=== PATIENT | male | born 1945 | race Caucasian/White ===

== ENCOUNTER 2021-10-11 08:03 | Emergency (ER) | payer BC, MEDICARE ==
[~2021-10-11 08:03] MED LIST: ASPI-247; GABA100C9; LOSA50TA7; SIMV40TA2; TAM04C
[2021-10-11 10:52] LABS: Urine Bacteria FEW /hpf (None Seen); Urine Blood 3+ /uL (Negative); Urine Specific Gravity 1.014 (1.001-1.035); Urine WBC 8 /hpf (0 - 3)
[2021-10-11 12:37] VITALS: BP 129/37
== END 2021-10-11 12:37 | disposition home or self-care (01) ==
LOC: ER 08:03
DX: R33.9 Retention of urine, unspecified (principal)
CPT/HCPCS: 51702; 81001

== ENCOUNTER 2021-10-29 20:30 | Inpatient (IN) | payer MEDICARE ==
[~2021-10-29] VITALS: Ht 177.8 cm; Wt 88.5 kg
[2021-10-29 21:29] LABS: Basophils # (auto) 0 10 ^3/uL (0-0.2); Basophils % (auto) 0.6 % (0.0-2.0); Eosinophils # (auto) 0.1 10 ^3/uL (0-0.8); Eosinophils % (auto) 1.1 % (0.0-7.0); Hematocrit 37.1 % (41.0-53.0); Hemoglobin 12.6 g/dL (13.5-17.5); Lymphocytes # (auto) 0.8 10 ^3/uL (0.4-5.4); Lymphocytes % (auto) 9.1 % (10.0-50.0); Mean Corpuscular Hemoglobin 31.8 pg (28.0-32.0); Mean Corpuscular Hgb Conc. 33.8 g/dL (32.0-36.0); Mean Corpuscular Volume 94.1 fL (80.0-100.0); Monocytes # (auto) 0.9 10 ^3/uL (0-1.3); Monocytes % (auto) 10.4 % (0.0-12.0); Neutrophils # (auto) 6.6 10 ^3/uL (1.6-8.6); Neutrophils % (auto) 78.8 % (37.0-80.0); Red Blood Cells 3.95 10^6/uL (4.5-5.90); Red Cell Distribution Width 16.8 % (11.8-14.3); White Blood Cell 8.4 10^3/uL (4.4-10.8)
[2021-10-29 21:45] LABS: Albumin 2.8 g/dL (3.4-5.0); BUN/Creatinine Ratio 16.2; Calcium 8.6 mg/dL (8.5-10.1)
[2021-10-29 21:48] LABS: Bilirubin, Total 0.4 mg/dL (0.2-1.0); Total Protein 6.4 g/dL (6.4-8.2)
[2021-10-30] MEDS ORDERED: SODIUM CHLORIDE 0.9% 1,000 ML IV ONE (00:30)
[2021-10-30] MEDS ORDERED: ONDANSETRON HCL 4 MG/2 ML VIAL IV PRN (03:00)
[2021-10-30] MEDS ORDERED: DOCUSATE SOD 100 MG CAP PO PRN (03:00)
[2021-10-30] MEDS ORDERED: ALBUMIN 25% 100 ML IV ONE (03:00)
[2021-10-30] MEDS ORDERED: ACETAMINOPHEN 325 MG TAB PO PRN (03:00)
[2021-10-30] MEDS ORDERED: HYDROcodone-ACET 5/325MG TAB PO PRN (03:00)
[2021-10-30] MEDS ORDERED: DEXTROSE (50%) 50ML SYRG IV PRN (03:00)
[2021-10-30] MEDS ORDERED: MORPHINE SULFATE INJ 2 MG/ml SYRG IV PRN (05:00)
[2021-10-30] MEDS ORDERED: NITROGLYCERIN 0.4 MG SL TAB SL PRN (05:00)
[2021-10-30 05:58] LABS: Basophils # (auto) 0 10 ^3/uL (0-0.2); Basophils % (auto) 0.6 % (0.0-2.0); Eosinophils # (auto) 0.1 10 ^3/uL (0-0.8); Eosinophils % (auto) 1.3 % (0.0-7.0); Lymphocytes # (auto) 0.9 10 ^3/uL (0.4-5.4); Lymphocytes % (auto) 15.2 % (10.0-50.0); Mean Corpuscular Hemoglobin 31.5 pg (28.0-32.0); Mean Corpuscular Hgb Conc. 33.4 g/dL (32.0-36.0); Mean Corpuscular Volume 94.3 fL (80.0-100.0); Monocytes # (auto) 0.6 10 ^3/uL (0-1.3); Monocytes % (auto) 10.6 % (0.0-12.0); Neutrophils # (auto) 4.3 10 ^3/uL (1.6-8.6); Neutrophils % (auto) 72.3 % (37.0-80.0); Red Cell Distribution Width 16.3 % (11.8-14.3)
[2021-10-30 06:16] LABS: Calcium 8.1 mg/dL (8.5-10.1); Chloride 105 mmol/L (98-107); Sodium 139 mmol/L (136-145)
[2021-10-30 06:19] LABS: Alanine Aminotransferase 27 U/L (16-61); Albumin 2.5 g/dL (3.4-5.0); Anion Gap 10 (5-15); Aspartate Aminotransferase 16 U/L (15-37); BUN/Creatinine Ratio 17.3; Blood Urea Nitrogen 35 mg/dL (7-18); Carbon Dioxide 24 mmol/L (21-32); GFR African American 42 mL/min; GFR Non-African American 34 mL/min; Glucose 146 mg/dL (74-106)
[2021-10-30 06:22] LABS: Alkaline Phosphatase 61 U/L (45-117); Bilirubin, Total 0.7 mg/dL (0.2-1.0); Total Protein 5.6 g/dL (6.4-8.2)
[2021-10-30] MEDS: SODIUM CHLOR 0.9% PF (SALINE LOCK) 10ML VIAL/SYR IV SCH ×3 (06:23→22:55)
[2021-10-30] MEDS: ACCU-CHEK COMFORT CURVE STRIP VI SCH ×4 (06:54→22:55)
[2021-10-30] MEDS: InsuLIN REG 1unit/0.01ml Soln (100units/ml) SC SCH ×4 (07:07→22:55)
[2021-10-30 09:12] LABS: Phosphorus 3.3 mg/dL (2.5-4.90)
[2021-10-30] MEDS: FAMOTIDINE (10MG/ML) 2ML VL IV SCH (10:10)
[2021-10-30] MEDS: ASPirin 81 mg TAB PO SCH (10:10)
[2021-10-30 13:05] LABS: Urine Bacteria FEW /hpf (None Seen); Urine Blood 1+ /uL (Negative); Urine Mucus FEW (None Seen); Urine Specific Gravity 1.017 (1.001-1.035); Urine WBC 17 /hpf (0 - 3)
[2021-10-30 13:29] LABS: Amphetamine Screen, Urine NEGATIVE (NEGATIVE); Barbiturate Scree,Urine NEGATIVE (NEGATIVE); Benzodiazephine Screen, Urine NEGATIVE (NEGATIVE); Cannabinoid Screen, Urine NEGATIVE (NEGATIVE); Cocaine Screen, Urine NEGATIVE (NEGATIVE); Opiate Scree,Urine NEGATIVE (NEGATIVE); Phencyclidine Screen, Urine NEGATIVE (NEGATIVE)
[2021-10-30] MEDS ORDERED: POTA1TAB4 PO (20:32)
[2021-10-30] MEDS ORDERED: METF-869 PO (20:32)
[2021-10-30] MEDS ORDERED: LINA145C PO (20:32)
[2021-10-30] MEDS ORDERED: DULO1CAP6 PO (20:32)
[2021-10-30] MEDS ORDERED: ATOR40TA52 PO (20:32)
[2021-10-30] MEDS ORDERED: METO25TA93 PO (20:32)
[2021-10-30] MEDS ORDERED: OMEP-260 PO (20:32)
[2021-10-30 22:00] VITALS: BP 127/85
[2021-10-30] MEDS ORDERED: LORazepam 2MG/ML-1ML VIAL IV PRN (23:00)
[2021-10-31 05:00] VITALS: BP 116/70
[2021-10-31 06:08] LABS: Basophils # (auto) 0 10 ^3/uL (0-0.2); Basophils % (auto) 0.8 % (0.0-2.0); Eosinophils # (auto) 0.1 10 ^3/uL (0-0.8); Hematocrit 33.5 % (41.0-53.0); Hemoglobin 11.1 g/dL (13.5-17.5); Lymphocytes # (auto) 0.9 10 ^3/uL (0.4-5.4); Lymphocytes % (auto) 16.8 % (10.0-50.0); Mean Corpuscular Hgb Conc. 33.1 g/dL (32.0-36.0); Mean Corpuscular Volume 93.8 fL (80.0-100.0); Monocytes # (auto) 0.6 10 ^3/uL (0-1.3); Monocytes % (auto) 10.7 % (0.0-12.0); Neutrophils # (auto) 3.9 10 ^3/uL (1.6-8.6); Neutrophils % (auto) 69.7 % (37.0-80.0); Red Blood Cells 3.58 10^6/uL (4.5-5.90); Red Cell Distribution Width 16.1 % (11.8-14.3); White Blood Cell 5.5 10^3/uL (4.4-10.8)
[2021-10-31 06:25] LABS: Potassium 4.1 mmol/L (3.5-5.1)
[2021-10-31] MEDS: SODIUM CHLOR 0.9% PF (SALINE LOCK) 10ML VIAL/SYR IV SCH ×3 (06:31→22:00)
[2021-10-31] MEDS: ACCU-CHEK COMFORT CURVE STRIP VI SCH ×4 (06:31→22:00)
[2021-10-31 06:32] LABS: Albumin 2.8 g/dL (3.4-5.0); BUN/Creatinine Ratio 17.2; Calcium 8.9 mg/dL (8.5-10.1)
[2021-10-31] MEDS: InsuLIN REG 1unit/0.01ml Soln (100units/ml) SC SCH ×4 (06:32→22:00)
[2021-10-31 06:34] LABS: Bilirubin, Total 0.7 mg/dL (0.2-1.0); Total Protein 5.8 g/dL (6.4-8.2)
[2021-10-31 09:00] VITALS: BP 122/83
[2021-10-31] MEDS: ASPirin 81 mg TAB PO SCH (10:00)
[2021-10-31] MEDS: FAMOTIDINE (10MG/ML) 2ML VL IV SCH (10:00)
[2021-10-31 13:00] VITALS: BP 132/79
[2021-10-31] MEDS ORDERED: cefTRIAXone 1GM/50ML D5W 50 ML IV ONE (13:45)
[2021-10-31 22:00] VITALS: BP 152/89
[2021-11-01] MEDS ORDERED: PREG50CA PO (03:16)
[2021-11-01 05:00] VITALS: BP 99/63
[2021-11-01] MEDS: SODIUM CHLOR 0.9% PF (SALINE LOCK) 10ML VIAL/SYR IV SCH ×3 (06:00→21:48)
[2021-11-01 06:03] LABS: Basophils # (auto) 0.1 10 ^3/uL (0-0.2); Basophils % (auto) 0.8 % (0.0-2.0); Eosinophils # (auto) 0.1 10 ^3/uL (0-0.8); Eosinophils % (auto) 1.3 % (0.0-7.0); Hemoglobin 10.6 g/dL (13.5-17.5); Lymphocytes % (auto) 15.6 % (10.0-50.0); Mean Corpuscular Hemoglobin 32.2 pg (28.0-32.0); Mean Corpuscular Hgb Conc. 34.2 g/dL (32.0-36.0); Mean Corpuscular Volume 94.2 fL (80.0-100.0); Monocytes # (auto) 0.7 10 ^3/uL (0-1.3); Monocytes % (auto) 11.1 % (0.0-12.0); Neutrophils # (auto) 4.7 10 ^3/uL (1.6-8.6); Neutrophils % (auto) 71.2 % (37.0-80.0); White Blood Cell 6.6 10^3/uL (4.4-10.8)
[2021-11-01 06:06] LABS: Calcium 8.7 mg/dL (8.5-10.1); Potassium 4.1 mmol/L (3.5-5.1)
[2021-11-01 06:11] LABS: BUN/Creatinine Ratio 17.2; Magnesium 1.9 mg/dL (1.6-2.6)
[2021-11-01] MEDS: InsuLIN REG 1unit/0.01ml Soln (100units/ml) SC SCH ×4 (06:57→22:13)
[2021-11-01] MEDS: ACCU-CHEK COMFORT CURVE STRIP VI SCH ×4 (06:57→21:48)
[2021-11-01] MEDS ORDERED: MAGNESIUM OXIDE 400 MG TAB PO ONE (08:30)
[2021-11-01 09:00] VITALS: BP 104/73
[2021-11-01] MEDS: FAMOTIDINE (10MG/ML) 2ML VL IV SCH (11:53)
[2021-11-01] MEDS: cefTRIAXone 1GM/50ML D5W 50 ML IV SCH (11:54)
[2021-11-01] MEDS: ASPirin 81 mg TAB PO SCH (11:54)
[2021-11-01 13:00] VITALS: BP 99/69
[2021-11-01 16:00] VITALS: BP_SYST 115; BP_SYST 125; BP_DIAS 64; BP_DIAS 79; BP_DIAS 83
[2021-11-01 17:00] VITALS: BP 120/70
[2021-11-01 22:00] VITALS: BP 121/73
[2021-11-02] VITALS (7 sets, daily range): BP systolic 102–141; BP diastolic 68–93
[2021-11-02] MEDS: SODIUM CHLOR 0.9% PF (SALINE LOCK) 10ML VIAL/SYR IV SCH ×3 (06:05→21:49)
[2021-11-02] MEDS: InsuLIN REG 1unit/0.01ml Soln (100units/ml) SC SCH ×4 (06:47→21:49)
[2021-11-02] MEDS: ACCU-CHEK COMFORT CURVE STRIP VI SCH ×4 (06:47→23:55)
[2021-11-02] MEDS: cefTRIAXone 1GM/50ML D5W 50 ML IV SCH (08:20)
[2021-11-02] MEDS: FAMOTIDINE (10MG/ML) 2ML VL IV SCH (09:00)
[2021-11-02] MEDS: ASPirin 81 mg TAB PO SCH (09:00)
[2021-11-02 20:59] LABS: Basophils # (auto) 0 10 ^3/uL (0-0.2); Basophils % (auto) 0.7 % (0.0-2.0); Eosinophils # (auto) 0.1 10 ^3/uL (0-0.8); Eosinophils % (auto) 1.8 % (0.0-7.0); Hematocrit 34.2 % (41.0-53.0); Hemoglobin 11.1 g/dL (13.5-17.5); Lymphocytes # (auto) 0.8 10 ^3/uL (0.4-5.4); Lymphocytes % (auto) 15.8 % (10.0-50.0); Mean Corpuscular Hemoglobin 30.9 pg (28.0-32.0); Mean Corpuscular Hgb Conc. 32.6 g/dL (32.0-36.0); Mean Corpuscular Volume 94.8 fL (80.0-100.0); Monocytes # (auto) 0.5 10 ^3/uL (0-1.3); Monocytes % (auto) 10.3 % (0.0-12.0); Neutrophils # (auto) 3.7 10 ^3/uL (1.6-8.6); Neutrophils % (auto) 71.4 % (37.0-80.0); Red Cell Distribution Width 16.1 % (11.8-14.3); White Blood Cell 5.2 10^3/uL (4.4-10.8)
[2021-11-02 21:15] LABS: BUN/Creatinine Ratio 14.4; Calcium 9.5 mg/dL (8.5-10.1); Potassium 4.5 mmol/L (3.5-5.1)
[2021-11-03 05:00] VITALS: BP 136/72
[2021-11-03] MEDS: SODIUM CHLOR 0.9% PF (SALINE LOCK) 10ML VIAL/SYR IV SCH ×2 (06:21→09:44)
[2021-11-03] MEDS: InsuLIN REG 1unit/0.01ml Soln (100units/ml) SC SCH ×2 (06:21→11:53)
[2021-11-03] MEDS: ACCU-CHEK COMFORT CURVE STRIP VI SCH ×2 (06:21→11:47)
[2021-11-03 08:30] VITALS: BP 106/63
[2021-11-03] MEDS: cefTRIAXone 1GM/50ML D5W 50 ML IV SCH (08:31)
[2021-11-03 09:00] VITALS: BP 106/63
[2021-11-03] MEDS: FAMOTIDINE (10MG/ML) 2ML VL IV SCH (09:40)
[2021-11-03] MEDS: ASPirin 81 mg TAB PO SCH (09:41)
[2021-11-03 13:00] VITALS: BP 107/75
== END 2021-11-03 14:05 | disposition home or self-care (01) | DRG 74 ==
LOC: ER 20:30 → EDBD 20:30 → TELE 10-30 04:48 → TELE-WESTW 10-30 18:22
PROVIDERS: ADMIT Nurse Practitioner Family; ATTEND Internal Medicine
DX: G90.8 Other disorders of autonomic nervous system (principal); I45.3 Trifascicular block; E44.0 Moderate protein-calorie malnutrition; I13.0 Hypertensive heart and chronic kidney disease with heart failure and stage 1 through stage 4 chronic kidney disease, or unspecified chronic kidney disease; I50.30 Unspecified diastolic (congestive) heart failure; J44.1 Chronic obstructive pulmonary disease with (acute) exacerbation; J96.10 Chronic respiratory failure, unspecified whether with hypoxia or hypercapnia; J98.11 Atelectasis; N13.8 Other obstructive and reflux uropathy; N17.9 Acute kidney failure, unspecified; D64.9 Anemia, unspecified; Z20.822 Contact with and (suspected) exposure to COVID-19; D69.6 Thrombocytopenia, unspecified; E11.22 Type 2 diabetes mellitus with diabetic chronic kidney disease; E66.9 Obesity, unspecified; E78.5 Hyperlipidemia, unspecified; E86.0 Dehydration; F17.200 Nicotine dependence, unspecified, uncomplicated; H91.90 Unspecified hearing loss, unspecified ear; N18.32 Chronic kidney disease, stage 3b; N40.1 Benign prostatic hyperplasia with lower urinary tract symptoms; H54.7 Unspecified visual loss; Z79.84 Long term (current) use of oral hypoglycemic drugs; Z79.82 Long term (current) use of aspirin; Z79.899 Other long term (current) drug therapy; Z83.3 Family history of diabetes mellitus; Z85.118 Personal history of other malignant neoplasm of bronchus and lung; Z85.22 Personal history of malignant neoplasm of nasal cavities, middle ear, and accessory sinuses; Z86.718 Personal history of other venous thrombosis and embolism; Z68.28 Body mass index [BMI] 28.0-28.9, adult
CPT/HCPCS: 36415; 70450; 70551; 71045; 80048; 80053; 80061; 80307; 81001; 82140; 82607; 82746; 82962; 83036; 83735; 83880; 84100; 84154; 84443; 84484; 85025; 87081; 93005; 93306; 93886; 96361; 96365; 97163; G0378; J0696; J1815; J3490; P9047

== ENCOUNTER 2021-11-14 02:40 | Inpatient (IN) | payer MEDICARE ==
[~2021-11-14] VITALS: Ht 177.8 cm; Wt 145.2 kg
[~2021-11-14 02:40] MED LIST changes: +ATOR40TA52 PO; +DULO1CAP6 PO; +LINA145C PO; +METF-869 PO; +METO25TA93 PO; +OMEP-260 PO; +POTA1TAB4 PO; +PREG50CA PO
[2021-11-14] MEDS ORDERED: ONDANSETRON HCL 4 MG/2 ML VIAL IV ONE (03:30)
[2021-11-14] MEDS ORDERED: MORPHINE SULFATE 4 MG/ML SYR/VIAL IV ONE (03:30)
[2021-11-14 03:57] LABS: Basophils # (auto) 0 10 ^3/uL (0-0.2); Basophils % (auto) 0.7 % (0.0-2.0); Eosinophils # (auto) 0.2 10 ^3/uL (0-0.8); Eosinophils % (auto) 2.2 % (0.0-7.0); Hematocrit 28.1 % (41.0-53.0); Hemoglobin 9.6 g/dL (13.5-17.5); Lymphocytes # (auto) 1.3 10 ^3/uL (0.4-5.4); Lymphocytes % (auto) 17.9 % (10.0-50.0); Mean Corpuscular Hemoglobin 31.7 pg (28.0-32.0); Mean Corpuscular Hgb Conc. 34.1 g/dL (32.0-36.0); Monocytes # (auto) 1.1 10 ^3/uL (0-1.3); Monocytes % (auto) 14.8 % (0.0-12.0); Neutrophils # (auto) 4.7 10 ^3/uL (1.6-8.6); Neutrophils % (auto) 64.4 % (37.0-80.0); Nucleated Red Blood Cells % 0.1 %; Red Blood Cells 3.02 10^6/uL (4.5-5.90); Red Cell Distribution Width 16.4 % (11.8-14.3); White Blood Cell 7.3 10^3/uL (4.4-10.8)
[2021-11-14 04:12] LABS: Calcium 7.9 mg/dL (8.5-10.1); Potassium 3.3 mmol/L (3.5-5.1)
[2021-11-14 04:16] LABS: INR 1.06 (0.9-1.15)
[2021-11-14 04:18] LABS: Albumin 2.8 g/dL (3.4-5.0); BUN/Creatinine Ratio 9.4; Bilirubin, Total 0.8 mg/dL (0.2-1.0); Total Protein 6.5 g/dL (6.4-8.2)
[2021-11-14] MEDS ORDERED: cefTRIAXone 1GM/50ML D5W 50 ML IV ONE (06:30)
[2021-11-14 07:34] LABS: Urine Bacteria FEW /hpf (None Seen); Urine Blood 3+ /uL (Negative); Urine Mucus FEW (None Seen); Urine WBC 28 /hpf (0 - 3)
[2021-11-14] MEDS ORDERED: HYDROmorphone HCL 2 MG/ML VL/or syr IV ONE (10:30)
[2021-11-14] MEDS ORDERED: HYDROcodone-ACET 5/325MG TAB PO PRN (11:30)
[2021-11-14] MEDS ORDERED: DOCUSATE SOD 100 MG CAP PO PRN (11:30)
[2021-11-14] MEDS ORDERED: ACETAMINOPHEN 325 MG TAB PO PRN (11:30)
[2021-11-14] MEDS ORDERED: DEXTROSE (50%) 50ML SYRG IV PRN (11:45)
[2021-11-14 11:48] LABS: Urine Bacteria None Seen /hpf (None Seen); Urine WBC None Seen /hpf (0 - 3)
[2021-11-14 12:11] LABS: Creatinine, Urine 50 mg/dL (30.0-125.0); Sodium Urine 60 mmol/L (40-220)
[2021-11-14] MEDS: SODIUM CHLOR 0.9% PF (SALINE LOCK) 10ML VIAL/SYR IV SCH ×2 (14:12→22:41)
[2021-11-14] MEDS: ACCU-CHEK COMFORT CURVE STRIP VI SCH ×2 (17:19→22:40)
[2021-11-14] MEDS: InsuLIN REG 1unit/0.01ml Soln (100units/ml) SC SCH ×2 (17:24→22:40)
[2021-11-14] MEDS: ONDANSETRON HCL 4 MG/2 ML VIAL IV PRN (20:42)
[2021-11-14] MEDS: MORPHINE SULFATE INJ 2 MG/ml SYRG IV PRN (20:43)
[2021-11-14] MEDS ORDERED: METOPROLOL SUCCINATE XL 50 MG TAB PO ONE (22:15)
[2021-11-14] MEDS ORDERED: IBUPROFEN 400 MG TAB PO ONE (22:15)
[2021-11-14] MEDS: ATORVASTATIN 20 MG TAB PO SCH (22:41)
[2021-11-14 23:00] VITALS: BP 109/70
[2021-11-14 23:56] VITALS: BP 113/62
[2021-11-15] MEDS ORDERED: DUTACAP PO (03:49)
[2021-11-15] MEDS ORDERED: BENZ200C64 PO (03:49)
[2021-11-15] MEDS ORDERED: ASPI81CH59 PO (03:50)
[2021-11-15 05:13] VITALS: BP 103/61
[2021-11-15] MEDS: SODIUM CHLOR 0.9% PF (SALINE LOCK) 10ML VIAL/SYR IV SCH ×3 (06:11→21:42)
[2021-11-15] MEDS: InsuLIN REG 1unit/0.01ml Soln (100units/ml) SC SCH ×4 (06:11→21:43)
[2021-11-15] MEDS: ACCU-CHEK COMFORT CURVE STRIP VI SCH ×4 (06:11→21:43)
[2021-11-15 09:00] VITALS: BP 106/66
[2021-11-15 09:57] LABS: Calcium 7.7 mg/dL (8.5-10.1); Potassium 3.9 mmol/L (3.5-5.1)
[2021-11-15] MEDS: TAMSULOSIN HYDROCHLORIDE 0.4 MG CAP PO SCH (10:00)
[2021-11-15] MEDS: GABAPENTIN 100 MG CAP PO SCH (10:00)
[2021-11-15] MEDS: cefTRIAXone 1GM/50ML D5W 50 ML IV SCH (10:51)
[2021-11-15] MEDS: DULoxetine HCL 30 MG CAP PO SCH (10:51)
[2021-11-15] MEDS: POTASSIUM CHL 20 Meq TABLET PO SCH (10:53)
[2021-11-15] MEDS: SENNA 8.6 MG TAB PO SCH (10:54)
[2021-11-15] MEDS: METOPROLOL SUCCINATE XL 50 MG TAB PO SCH (10:54)
[2021-11-15] MEDS: PREGABALIN 25 MG CAP PO SCH (10:54)
[2021-11-15] MEDS ORDERED: guaiFENesin-CODEINE Liq 5 ML UD PO PRN (11:30)
[2021-11-15] MEDS: ALBUTEROL SULF 2.5 MG/0.5ML(0.5%) NEB SOLN NEB SCH ×2 (12:00→19:57)
[2021-11-15] MEDS: IPRATROPIUM BROM 0.5 MG/2.5ML INH SOL NEB SCH ×2 (12:00→19:57)
[2021-11-15 13:00] VITALS: BP 110/67
[2021-11-15] MEDS: SOD CHL 0.45% 1,000 ML IV SCH ×2 (13:13→21:42)
[2021-11-15] MEDS: BENZONATATE PO SCH ×2 (14:00→21:42)
[2021-11-15] MEDS: OMEPRAZOLE 20MG/10ML ORAL SUSP PO SCH (14:41)
[2021-11-15 17:04] VITALS: BP 112/78
[2021-11-15 19:09] VITALS: BP 112/78
[2021-11-15] MEDS: ATORVASTATIN 20 MG TAB PO SCH (21:42)
[2021-11-15 22:00] VITALS: BP 109/69
[2021-11-16] MEDS: MORPHINE SULFATE INJ 2 MG/ml SYRG IV PRN ×3 (00:31→12:18)
[2021-11-16 05:00] VITALS: BP 112/73
[2021-11-16 05:48] LABS: Basophils # (auto) 0 10 ^3/uL (0-0.2); Basophils % (auto) 0.5 % (0.0-2.0); Eosinophils # (auto) 0.2 10 ^3/uL (0-0.8); Monocytes # (auto) 0.9 10 ^3/uL (0-1.3); Neutrophils # (auto) 4.5 10 ^3/uL (1.6-8.6); White Blood Cell 6.7 10^3/uL (4.4-10.8)
[2021-11-16 05:49] LABS: Hematocrit 23.4 % (41.0-53.0); Lymphocytes # (auto) 1.1 10 ^3/uL (0.4-5.4); Lymphocytes % (auto) 16.2 % (10.0-50.0); Mean Corpuscular Hemoglobin 31.6 pg (28.0-32.0); Mean Corpuscular Hgb Conc. 34.2 g/dL (32.0-36.0); Mean Corpuscular Volume 92.5 fL (80.0-100.0); Monocytes % (auto) 13.2 % (0.0-12.0); Neutrophils % (auto) 67.1 % (37.0-80.0); Nucleated Red Blood Cells % 0.1 %; Red Blood Cells 2.53 10^6/uL (4.5-5.90); Red Cell Distribution Width 16.4 % (11.8-14.3)
[2021-11-16 05:53] LABS: Calcium 7.8 mg/dL (8.5-10.1)
[2021-11-16 05:55] LABS: BUN/Creatinine Ratio 13.9
[2021-11-16] MEDS: ALBUTEROL SULF 2.5 MG/0.5ML(0.5%) NEB SOLN NEB SCH ×3 (05:56→19:00)
[2021-11-16] MEDS: IPRATROPIUM BROM 0.5 MG/2.5ML INH SOL NEB SCH ×3 (05:56→19:00)
[2021-11-16] MEDS: BUDESONIDE (INHALATION) 0.5 MG/2 ML NEB NEB SCH ×2 (05:56→18:59)
[2021-11-16] MEDS: SODIUM CHLOR 0.9% PF (SALINE LOCK) 10ML VIAL/SYR IV SCH ×3 (06:00→21:55)
[2021-11-16] MEDS: BENZONATATE PO SCH ×3 (06:00→21:55)
[2021-11-16] MEDS: ACCU-CHEK COMFORT CURVE STRIP VI SCH ×4 (06:01→21:55)
[2021-11-16] MEDS: InsuLIN REG 1unit/0.01ml Soln (100units/ml) SC SCH ×4 (06:01→21:56)
[2021-11-16] MEDS: ONDANSETRON HCL 4 MG/2 ML VIAL IV PRN ×2 (06:01→12:18)
[2021-11-16 08:00] VITALS: BP 111/69
[2021-11-16 09:23] VITALS: BP 111/69
[2021-11-16] MEDS: PREGABALIN 25 MG CAP PO SCH (09:35)
[2021-11-16] MEDS: SENNA 8.6 MG TAB PO SCH (09:35)
[2021-11-16] MEDS: METOPROLOL SUCCINATE XL 50 MG TAB PO SCH (09:36)
[2021-11-16] MEDS: DULoxetine HCL 30 MG CAP PO SCH (09:37)
[2021-11-16] MEDS: POTASSIUM CHL 20 Meq TABLET PO SCH (09:37)
[2021-11-16] MEDS: LINACLOTIDE BASE PO SCH (09:38)
[2021-11-16] MEDS: DUTASTERIDE TAMSULOSIN HCL PO SCH (09:38)
[2021-11-16] MEDS: cefTRIAXone 1GM/50ML D5W 50 ML IV SCH (09:39)
[2021-11-16] MEDS: TAMSULOSIN HYDROCHLORIDE 0.4 MG CAP PO SCH (09:39)
[2021-11-16] MEDS: GABAPENTIN 100 MG CAP PO SCH (09:39)
[2021-11-16] MEDS: SOD CHL 0.45% 1,000 ML IV SCH (10:39)
[2021-11-16] MEDS: OMEPRAZOLE 20MG/10ML ORAL SUSP PO SCH (12:17)
[2021-11-16 13:37] VITALS: BP 117/77
[2021-11-16 17:00] VITALS: BP 104/73
[2021-11-16] MEDS ORDERED: POTA10TA51 PO (19:06)
[2021-11-16] MEDS ORDERED: LOSA25TA38 PO (19:06)
[2021-11-16] MEDS ORDERED: PREG50CA PO (19:06)
[2021-11-16] MEDS ORDERED: FURO40TA4 PO (19:06)
[2021-11-16] MEDS: ATORVASTATIN 20 MG TAB PO SCH (21:55)
[2021-11-16 22:00] VITALS: BP 104/59
[2021-11-17] MEDS: MORPHINE SULFATE INJ 2 MG/ml SYRG IV PRN ×2 (00:59→06:54)
[2021-11-17] MEDS: ONDANSETRON HCL 4 MG/2 ML VIAL IV PRN ×2 (01:02→06:54)
[2021-11-17] MEDS: SOD CHL 0.45% 1,000 ML IV SCH ×2 (01:56→15:35)
[2021-11-17 05:00] VITALS: BP 113/72
[2021-11-17] MEDS: BENZONATATE PO SCH ×3 (06:00→21:39)
[2021-11-17] MEDS: IPRATROPIUM BROM 0.5 MG/2.5ML INH SOL NEB SCH ×3 (06:12→18:53)
[2021-11-17] MEDS: ALBUTEROL SULF 2.5 MG/0.5ML(0.5%) NEB SOLN NEB SCH ×3 (06:12→18:53)
[2021-11-17] MEDS: BUDESONIDE (INHALATION) 0.5 MG/2 ML NEB NEB SCH ×2 (06:12→18:53)
[2021-11-17] MEDS: SODIUM CHLOR 0.9% PF (SALINE LOCK) 10ML VIAL/SYR IV SCH ×3 (06:53→21:39)
[2021-11-17] MEDS: InsuLIN REG 1unit/0.01ml Soln (100units/ml) SC SCH ×4 (06:53→21:41)
[2021-11-17] MEDS: ACCU-CHEK COMFORT CURVE STRIP VI SCH ×4 (06:53→21:40)
[2021-11-17 09:00] VITALS: BP 114/67
[2021-11-17 09:36] LABS: BUN/Creatinine Ratio 11.5; Calcium 7.8 mg/dL (8.5-10.1); Potassium 4.3 mmol/L (3.5-5.1)
[2021-11-17] MEDS: SENNA 8.6 MG TAB PO SCH (10:53)
[2021-11-17] MEDS: DULoxetine HCL 30 MG CAP PO SCH (10:53)
[2021-11-17] MEDS: PREGABALIN 25 MG CAP PO SCH (10:54)
[2021-11-17] MEDS: LINACLOTIDE BASE PO SCH (10:54)
[2021-11-17] MEDS: POTASSIUM CHL 20 Meq TABLET PO SCH (10:54)
[2021-11-17] MEDS: DUTASTERIDE TAMSULOSIN HCL PO SCH (10:54)
[2021-11-17] MEDS: cefTRIAXone 1GM/50ML D5W 50 ML IV SCH (10:55)
[2021-11-17] MEDS: METOPROLOL SUCCINATE XL 50 MG TAB PO SCH (10:57)
[2021-11-17] MEDS: OMEPRAZOLE 20MG/10ML ORAL SUSP PO SCH (11:03)
[2021-11-17 13:00] VITALS: BP 110/65
[2021-11-17 16:52] VITALS: BP 106/67
[2021-11-17] MEDS: ATORVASTATIN 20 MG TAB PO SCH (21:39)
[2021-11-17 22:00] VITALS: BP 113/71
[2021-11-18] MEDS: SOD CHL 0.45% 1,000 ML IV SCH ×2 (03:50→18:15)
[2021-11-18] MEDS: MORPHINE SULFATE INJ 2 MG/ml SYRG IV PRN ×3 (04:48→21:22)
[2021-11-18 05:00] VITALS: BP 106/67
[2021-11-18] MEDS: BENZONATATE PO SCH ×3 (06:00→22:00)
[2021-11-18] MEDS: ALBUTEROL SULF 2.5 MG/0.5ML(0.5%) NEB SOLN NEB SCH ×3 (06:22→19:09)
[2021-11-18] MEDS: BUDESONIDE (INHALATION) 0.5 MG/2 ML NEB NEB SCH ×2 (06:22→19:09)
[2021-11-18] MEDS: IPRATROPIUM BROM 0.5 MG/2.5ML INH SOL NEB SCH ×3 (06:22→19:09)
[2021-11-18 06:25] LABS: Basophils # (auto) 0 10 ^3/uL (0-0.2); Eosinophils # (auto) 0.2 10 ^3/uL (0-0.8); Hemoglobin 7.8 g/dL (13.5-17.5); Lymphocytes # (auto) 0.9 10 ^3/uL (0.4-5.4); Monocytes # (auto) 1.1 10 ^3/uL (0-1.3)
[2021-11-18 06:28] LABS: Basophils % (auto) 0.4 % (0.0-2.0); Eosinophils % (auto) 2.4 % (0.0-7.0); Hematocrit 23.2 % (41.0-53.0); Lymphocytes % (auto) 12.6 % (10.0-50.0); Mean Corpuscular Hemoglobin 31.3 pg (28.0-32.0); Mean Corpuscular Hgb Conc. 33.8 g/dL (32.0-36.0); Mean Corpuscular Volume 92.8 fL (80.0-100.0); Neutrophils # (auto) 5.1 10 ^3/uL (1.6-8.6); Neutrophils % (auto) 69.7 % (37.0-80.0); Red Cell Distribution Width 16.5 % (11.8-14.3); White Blood Cell 7.3 10^3/uL (4.4-10.8)
[2021-11-18 06:42] LABS: Albumin 2.3 g/dL (3.4-5.0); Calcium 8.1 mg/dL (8.5-10.1); Potassium 4.3 mmol/L (3.5-5.1)
[2021-11-18 06:47] LABS: BUN/Creatinine Ratio 11.1; Bilirubin, Total 0.7 mg/dL (0.2-1.0); Total Protein 5.6 g/dL (6.4-8.2)
[2021-11-18] MEDS: SODIUM CHLOR 0.9% PF (SALINE LOCK) 10ML VIAL/SYR IV SCH ×3 (06:47→23:24)
[2021-11-18] MEDS: ACCU-CHEK COMFORT CURVE STRIP VI SCH ×4 (06:47→23:24)
[2021-11-18] MEDS: InsuLIN REG 1unit/0.01ml Soln (100units/ml) SC SCH ×4 (06:47→23:25)
[2021-11-18 07:18] LABS: Monocytes % (auto) 14.9 % (0.0-12.0)
[2021-11-18 09:00] VITALS: BP 108/70
[2021-11-18] MEDS: cefTRIAXone 1GM/50ML D5W 50 ML IV SCH (09:15)
[2021-11-18] MEDS: PREGABALIN 25 MG CAP PO SCH (09:17)
[2021-11-18] MEDS: POTASSIUM CHL 20 Meq TABLET PO SCH (09:17)
[2021-11-18] MEDS: DULoxetine HCL 30 MG CAP PO SCH (09:17)
[2021-11-18] MEDS: SENNA 8.6 MG TAB PO SCH (09:17)
[2021-11-18] MEDS: METOPROLOL SUCCINATE XL 50 MG TAB PO SCH (09:18)
[2021-11-18] MEDS: DUTASTERIDE TAMSULOSIN HCL PO SCH (09:19)
[2021-11-18] MEDS: LINACLOTIDE BASE PO SCH (09:19)
[2021-11-18] MEDS: OMEPRAZOLE 20MG/10ML ORAL SUSP PO SCH (10:15)
[2021-11-18] MEDS ORDERED: LINEZOLID 600MG TABLET PO ONE (12:30)
[2021-11-18 13:00] VITALS: BP 108/79
[2021-11-18] MEDS ORDERED: VANCOMYCIN PER PHARMACY 0 MG IV SCH (15:15)
[2021-11-18 17:14] VITALS: BP 123/76
[2021-11-18 22:00] VITALS: BP 146/87
[2021-11-18] MEDS: LINEZOLID 600MG TABLET PO SCH (22:00)
[2021-11-18] MEDS ORDERED: LINEZOLID 600MG/300ML 300 ML IV SCH (22:00)
[2021-11-18] MEDS: ATORVASTATIN 20 MG TAB PO SCH (23:24)
[2021-11-19] VITALS (7 sets, daily range): BP systolic 114–145; BP diastolic 69–93
[2021-11-19] MEDS: MORPHINE SULFATE INJ 2 MG/ml SYRG IV PRN ×3 (01:36→22:34)
[2021-11-19] MEDS: SODIUM CHLOR 0.9% PF (SALINE LOCK) 10ML VIAL/SYR IV SCH ×3 (05:46→21:44)
[2021-11-19] MEDS: BENZONATATE PO SCH ×4 (06:00→22:00)
[2021-11-19] MEDS: ALBUTEROL SULF 2.5 MG/0.5ML(0.5%) NEB SOLN NEB SCH ×4 (06:10→18:40)
[2021-11-19] MEDS: IPRATROPIUM BROM 0.5 MG/2.5ML INH SOL NEB SCH ×4 (06:10→18:40)
[2021-11-19] MEDS: BUDESONIDE (INHALATION) 0.5 MG/2 ML NEB NEB SCH ×2 (06:11→18:40)
[2021-11-19] MEDS: ACCU-CHEK COMFORT CURVE STRIP VI SCH ×4 (07:00→22:00)
[2021-11-19] MEDS: InsuLIN REG 1unit/0.01ml Soln (100units/ml) SC SCH ×4 (07:00→22:34)
[2021-11-19] MEDS: SOD CHL 0.45% 1,000 ML IV SCH ×2 (07:35→21:43)
[2021-11-19] MEDS ORDERED: fentaNYL CITRATE 100 MCG/2 ML VL ONE (09:28)
[2021-11-19] MEDS ORDERED: MIDAZOLAM HCL 2MG/2ML 2ml VIAL (1mg/ml) ONE (09:28)
[2021-11-19] MEDS ORDERED: PROPOFOL 10 MG/ML 20 ML IV ONE (09:28)
[2021-11-19] MEDS ORDERED: BUPIVACAINE/DEXTROSE MPF 0.75% 2 ML AMP IT ONE (09:28)
[2021-11-19] MEDS ORDERED: SODIUM CHLORIDE LOCK 20 ML ONE (09:28)
[2021-11-19] MEDS: PANTOPRAZOLE 40 MG TAB PO SCH (10:00)
[2021-11-19] MEDS: SENNA 8.6 MG TAB PO SCH (10:00)
[2021-11-19] MEDS: METOPROLOL SUCCINATE XL 50 MG TAB PO SCH (10:00)
[2021-11-19] MEDS: LINEZOLID 600MG TABLET PO SCH ×2 (10:00→21:44)
[2021-11-19] MEDS: DUTASTERIDE TAMSULOSIN HCL PO SCH (10:00)
[2021-11-19] MEDS: LINACLOTIDE BASE PO SCH (10:00)
[2021-11-19] MEDS: DULoxetine HCL 30 MG CAP PO SCH (10:00)
[2021-11-19] MEDS: PREGABALIN 25 MG CAP PO SCH (10:00)
[2021-11-19] MEDS: POTASSIUM CHL 20 Meq TABLET PO SCH (10:00)
[2021-11-19] MEDS ORDERED: LIDOCAINE 2% JELLY 11ml (GLYDO) ONE (10:23)
[2021-11-19] MEDS ORDERED: METOCLOPRAMIDE HCL 5MG/ml INJ 2ml VIAL IV PRN (10:45)
[2021-11-19] MEDS ORDERED: MORPHINE SULFATE 4 MG/ML SYR/VIAL IV PRN (10:45)
[2021-11-19] MEDS ORDERED: HYDROmorphone HCL 2 MG/ML VL/or syr IV PRN ×2 (10:45)
[2021-11-19] MEDS ORDERED: ACCU-CHEK COMFORT CURVE STRIP VI ONE (10:45)
[2021-11-19] MEDS ORDERED: VANCOMYCIN HCL 1000 MG VL ONE (10:53)
[2021-11-19 15:41] LABS: Basophils # (auto) 0 10 ^3/uL (0-0.2); Basophils % (auto) 0.3 % (0.0-2.0); Eosinophils # (auto) 0.1 10 ^3/uL (0-0.8); Hematocrit 28.7 % (41.0-53.0); Hemoglobin 9.2 g/dL (13.5-17.5); Lymphocytes # (auto) 0.4 10 ^3/uL (0.4-5.4); Lymphocytes % (auto) 3.3 % (10.0-50.0); Mean Corpuscular Hgb Conc. 32.2 g/dL (32.0-36.0); Mean Corpuscular Volume 93.3 fL (80.0-100.0); Monocytes # (auto) 0.4 10 ^3/uL (0-1.3); Monocytes % (auto) 3.8 % (0.0-12.0); Neutrophils # (auto) 10.9 10 ^3/uL (1.6-8.6); Neutrophils % (auto) 91.6 % (37.0-80.0); Red Blood Cells 3.08 10^6/uL (4.5-5.90); Red Cell Distribution Width 16.4 % (11.8-14.3); White Blood Cell 11.9 10^3/uL (4.4-10.8)
[2021-11-19 15:58] LABS: Calcium 8.4 mg/dL (8.5-10.1); Potassium 4.9 mmol/L (3.5-5.1)
[2021-11-19] MEDS: ATORVASTATIN 20 MG TAB PO SCH (21:44)
[2021-11-20] MEDS: MORPHINE SULFATE INJ 2 MG/ml SYRG IV PRN ×2 (02:32→22:18)
[2021-11-20 04:53] VITALS: BP 117/72
[2021-11-20] MEDS: SODIUM CHLOR 0.9% PF (SALINE LOCK) 10ML VIAL/SYR IV SCH ×3 (06:00→22:02)
[2021-11-20] MEDS: BENZONATATE PO SCH ×3 (06:00→22:00)
[2021-11-20 06:14] LABS: Eosinophils # (auto) 0 10 ^3/uL (0-0.8); Hemoglobin 7.9 g/dL (13.5-17.5); White Blood Cell 20.6 10^3/uL (4.4-10.8)
[2021-11-20 06:23] LABS: Basophils # (auto) 0 10 ^3/uL (0-0.2); Basophils % (auto) 0.2 % (0.0-2.0); Lymphocytes # (auto) 0.7 10 ^3/uL (0.4-5.4); Lymphocytes % (auto) 3.4 % (10.0-50.0); Mean Corpuscular Hemoglobin 30.6 pg (28.0-32.0); Mean Corpuscular Hgb Conc. 32.7 g/dL (32.0-36.0); Mean Corpuscular Volume 93.4 fL (80.0-100.0); Monocytes # (auto) 1.8 10 ^3/uL (0-1.3); Monocytes % (auto) 8.8 % (0.0-12.0); Neutrophils % (auto) 87.6 % (37.0-80.0); Red Blood Cells 2.57 10^6/uL (4.5-5.90); Red Cell Distribution Width 16.8 % (11.8-14.3)
[2021-11-20] MEDS: BUDESONIDE (INHALATION) 0.5 MG/2 ML NEB NEB SCH ×2 (06:31→19:36)
[2021-11-20] MEDS: ALBUTEROL SULF 2.5 MG/0.5ML(0.5%) NEB SOLN NEB SCH ×3 (06:31→19:36)
[2021-11-20] MEDS: IPRATROPIUM BROM 0.5 MG/2.5ML INH SOL NEB SCH ×3 (06:31→19:36)
[2021-11-20 06:46] LABS: Calcium 8.1 mg/dL (8.5-10.1); Potassium 4.9 mmol/L (3.5-5.1)
[2021-11-20] MEDS: ACCU-CHEK COMFORT CURVE STRIP VI SCH ×4 (06:47→22:02)
[2021-11-20 06:49] LABS: BUN/Creatinine Ratio 11.6
[2021-11-20] MEDS: InsuLIN REG 1unit/0.01ml Soln (100units/ml) SC SCH ×4 (06:49→22:16)
[2021-11-20 09:38] VITALS: BP 116/75
[2021-11-20] MEDS: SOD CHL 0.45% 1,000 ML IV SCH (10:00)
[2021-11-20] MEDS: DUTASTERIDE TAMSULOSIN HCL PO SCH (10:56)
[2021-11-20] MEDS: METOPROLOL SUCCINATE XL 50 MG TAB PO SCH (10:56)
[2021-11-20] MEDS: POTASSIUM CHL 20 Meq TABLET PO SCH (10:56)
[2021-11-20] MEDS: LINACLOTIDE BASE PO SCH (10:56)
[2021-11-20] MEDS: PANTOPRAZOLE 40 MG TAB PO SCH (10:58)
[2021-11-20] MEDS: PREGABALIN 25 MG CAP PO SCH (10:58)
[2021-11-20] MEDS: DULoxetine HCL 30 MG CAP PO SCH (10:58)
[2021-11-20] MEDS: SENNA 8.6 MG TAB PO SCH (10:59)
[2021-11-20] MEDS: LINEZOLID 600MG TABLET PO SCH ×2 (11:38→22:00)
[2021-11-20] MEDS: BELLADONNA ALKAL/OPIUM (16.2/30MG) RECT SUPP PR SCH (11:38)
[2021-11-20 13:00] VITALS: BP 107/73
[2021-11-20 16:49] VITALS: BP 121/68
[2021-11-20 21:54] VITALS: BP 124/78
[2021-11-20] MEDS: ATORVASTATIN 20 MG TAB PO SCH (22:12)
[2021-11-21 04:46] VITALS: BP 99/41
[2021-11-21] MEDS: BENZONATATE PO SCH ×3 (06:00→21:41)
[2021-11-21 06:18] LABS: Eosinophils # (auto) 0.2 10 ^3/uL (0-0.8); White Blood Cell 11.6 10^3/uL (4.4-10.8)
[2021-11-21 06:22] LABS: Basophils # (auto) 0.1 10 ^3/uL (0-0.2); Basophils % (auto) 0.5 % (0.0-2.0); Eosinophils % (auto) 1.5 % (0.0-7.0); Hematocrit 20.9 % (41.0-53.0); Lymphocytes # (auto) 1.1 10 ^3/uL (0.4-5.4); Lymphocytes % (auto) 9.9 % (10.0-50.0); Mean Corpuscular Hemoglobin 30.9 pg (28.0-32.0); Mean Corpuscular Hgb Conc. 33.1 g/dL (32.0-36.0); Mean Corpuscular Volume 93.2 fL (80.0-100.0); Monocytes # (auto) 1.1 10 ^3/uL (0-1.3); Monocytes % (auto) 9.9 % (0.0-12.0); Neutrophils # (auto) 9.1 10 ^3/uL (1.6-8.6); Neutrophils % (auto) 78.2 % (37.0-80.0); Red Blood Cells 2.24 10^6/uL (4.5-5.90); Red Cell Distribution Width 16.9 % (11.8-14.3)
[2021-11-21 06:30] LABS: Hemoglobin 6.9 g/dL (13.5-17.5)
[2021-11-21 06:35] LABS: Calcium 8.6 mg/dL (8.5-10.1); Potassium 4.7 mmol/L (3.5-5.1)
[2021-11-21 06:38] LABS: BUN/Creatinine Ratio 12.4
[2021-11-21] MEDS: SODIUM CHLOR 0.9% PF (SALINE LOCK) 10ML VIAL/SYR IV SCH ×3 (06:39→21:38)
[2021-11-21] MEDS: ACCU-CHEK COMFORT CURVE STRIP VI SCH ×4 (06:47→22:07)
[2021-11-21] MEDS: InsuLIN REG 1unit/0.01ml Soln (100units/ml) SC SCH ×4 (06:47→22:08)
[2021-11-21] MEDS: BUDESONIDE (INHALATION) 0.5 MG/2 ML NEB NEB SCH ×2 (06:51→18:06)
[2021-11-21] MEDS: IPRATROPIUM BROM 0.5 MG/2.5ML INH SOL NEB SCH ×3 (06:51→18:06)
[2021-11-21] MEDS: ALBUTEROL SULF 2.5 MG/0.5ML(0.5%) NEB SOLN NEB SCH ×3 (06:51→18:06)
[2021-11-21 09:10] VITALS: BP 165/64
[2021-11-21] MEDS: LINEZOLID 600MG TABLET PO SCH ×2 (09:38→21:38)
[2021-11-21] MEDS: SENNA 8.6 MG TAB PO SCH (09:39)
[2021-11-21] MEDS: PANTOPRAZOLE 40 MG TAB PO SCH (09:39)
[2021-11-21] MEDS: POTASSIUM CHL 20 Meq TABLET PO SCH (09:39)
[2021-11-21] MEDS: DULoxetine HCL 30 MG CAP PO SCH (09:40)
[2021-11-21] MEDS: LINACLOTIDE BASE PO SCH (09:40)
[2021-11-21] MEDS: DUTASTERIDE TAMSULOSIN HCL PO SCH (09:41)
[2021-11-21] MEDS: METOPROLOL SUCCINATE XL 50 MG TAB PO SCH (09:44)
[2021-11-21] MEDS: PREGABALIN 25 MG CAP PO SCH (09:57)
[2021-11-21] MEDS: BELLADONNA ALKAL/OPIUM (16.2/30MG) RECT SUPP PR SCH (09:57)
[2021-11-21] MEDS: SOD CHL 0.45% 1,000 ML IV SCH (10:00)
[2021-11-21 12:57] VITALS: BP 128/71
[2021-11-21 13:42] LABS: Basophils # (auto) 0.1 10 ^3/uL (0-0.2); Eosinophils # (auto) 0.2 10 ^3/uL (0-0.8); Eosinophils % (auto) 2.4 % (0.0-7.0); Hemoglobin 7.4 g/dL (13.5-17.5); Monocytes # (auto) 0.9 10 ^3/uL (0-1.3); Monocytes % (auto) 9.7 % (0.0-12.0); Neutrophils # (auto) 7.4 10 ^3/uL (1.6-8.6)
[2021-11-21 13:44] LABS: Basophils % (auto) 0.7 % (0.0-2.0); Hematocrit 22.4 % (41.0-53.0); Lymphocytes # (auto) 0.9 10 ^3/uL (0.4-5.4); Lymphocytes % (auto) 9.8 % (10.0-50.0); Mean Corpuscular Hemoglobin 30.7 pg (28.0-32.0); Mean Corpuscular Hgb Conc. 33.1 g/dL (32.0-36.0); Mean Corpuscular Volume 92.7 fL (80.0-100.0); Neutrophils % (auto) 77.4 % (37.0-80.0); Nucleated Red Blood Cells % 0.1 %; Red Blood Cells 2.42 10^6/uL (4.5-5.90); Red Cell Distribution Width 16.7 % (11.8-14.3); White Blood Cell 9.5 10^3/uL (4.4-10.8)
[2021-11-21 17:08] VITALS: BP 118/73
[2021-11-21 18:00] LABS: Hemoglobin 7.7 g/dL (13.5-17.5)
[2021-11-21 18:02] LABS: Hematocrit 23.3 % (41.0-53.0)
[2021-11-21] MEDS: ATORVASTATIN 20 MG TAB PO SCH (21:38)
[2021-11-21 22:00] VITALS: BP 107/72
[2021-11-21] MEDS: MORPHINE SULFATE INJ 2 MG/ml SYRG IV PRN (23:27)
[2021-11-22 05:00] VITALS: BP 143/82
[2021-11-22] MEDS: SODIUM CHLOR 0.9% PF (SALINE LOCK) 10ML VIAL/SYR IV SCH ×2 (05:56→14:00)
[2021-11-22] MEDS: BENZONATATE PO SCH ×2 (05:56→14:57)
[2021-11-22] MEDS: InsuLIN REG 1unit/0.01ml Soln (100units/ml) SC SCH ×3 (05:56→18:14)
[2021-11-22] MEDS: ACCU-CHEK COMFORT CURVE STRIP VI SCH ×3 (05:56→18:14)
[2021-11-22] MEDS: IPRATROPIUM BROM 0.5 MG/2.5ML INH SOL NEB SCH ×3 (06:20→17:55)
[2021-11-22] MEDS: ALBUTEROL SULF 2.5 MG/0.5ML(0.5%) NEB SOLN NEB SCH ×3 (06:20→17:55)
[2021-11-22] MEDS: BUDESONIDE (INHALATION) 0.5 MG/2 ML NEB NEB SCH ×2 (06:21→17:55)
[2021-11-22 09:00] VITALS: BP 104/61
[2021-11-22] MEDS: SOD CHL 0.45% 1,000 ML IV SCH (09:29)
[2021-11-22] MEDS: DUTASTERIDE TAMSULOSIN HCL PO SCH (09:29)
[2021-11-22] MEDS: DULoxetine HCL 30 MG CAP PO SCH (09:30)
[2021-11-22] MEDS: PREGABALIN 25 MG CAP PO SCH (09:30)
[2021-11-22] MEDS: LINACLOTIDE BASE PO SCH (09:30)
[2021-11-22] MEDS: POTASSIUM CHL 20 Meq TABLET PO SCH (09:30)
[2021-11-22] MEDS: SENNA 8.6 MG TAB PO SCH (09:31)
[2021-11-22] MEDS: PANTOPRAZOLE 40 MG TAB PO SCH (09:31)
[2021-11-22] MEDS: LINEZOLID 600MG TABLET PO SCH (09:36)
[2021-11-22] MEDS: METOPROLOL SUCCINATE XL 50 MG TAB PO SCH (09:36)
[2021-11-22 09:52] LABS: Calcium 8.3 mg/dL (8.5-10.1); Potassium 4.8 mmol/L (3.5-5.1)
[2021-11-22 09:55] LABS: BUN/Creatinine Ratio 12.3
[2021-11-22] MEDS: BELLADONNA ALKAL/OPIUM (16.2/30MG) RECT SUPP PR SCH (10:00)
[2021-11-22 11:41] VITALS: BP 126/62
[2021-11-22] MEDS ORDERED: BACDST PO (12:04)
[2021-11-22 12:27] VITALS: BP 111/49
[2021-11-22 17:00] VITALS: BP 135/87
== END 2021-11-22 18:10 | disposition home or self-care (01) | DRG 665 ==
LOC: EDUNIT# 02:40 → ER 02:40 → EDBD 02:40 → OVERFLOW 11:40 → WEST WING 20:55
PROVIDERS: ADMIT Internal Medicine; ATTEND Nurse Practitioner Acute Care
PROC: 0TCB8ZZ Extirpation of Matter from Bladder, Via Natural or Artificial Opening Endoscopic (ICD-10-PCS; 2021-11-19)
PROC: 30233N1 Transfusion of Nonautologous Red Blood Cells into Peripheral Vein, Percutaneous Approach (ICD-10-PCS; 2021-11-19)
PROC: 0V508ZZ Destruction of Prostate, Via Natural or Artificial Opening Endoscopic (ICD-10-PCS; principal; 2021-11-19 11:12)
DX: N17.9 Acute kidney failure, unspecified (principal); J96.21 Acute and chronic respiratory failure with hypoxia; E44.0 Moderate protein-calorie malnutrition; Z68.42 Body mass index [BMI] 45.0-49.9, adult; N13.8 Other obstructive and reflux uropathy; Z20.822 Contact with and (suspected) exposure to COVID-19; N40.1 Benign prostatic hyperplasia with lower urinary tract symptoms; N18.4 Chronic kidney disease, stage 4 (severe); D64.9 Anemia, unspecified; T83.021A Displacement of indwelling urethral catheter, initial encounter; R31.0 Gross hematuria; E11.22 Type 2 diabetes mellitus with diabetic chronic kidney disease; I12.9 Hypertensive chronic kidney disease with stage 1 through stage 4 chronic kidney disease, or unspecified chronic kidney disease; E66.9 Obesity, unspecified; E78.5 Hyperlipidemia, unspecified; J44.9 Chronic obstructive pulmonary disease, unspecified; N30.90 Cystitis, unspecified without hematuria; N32.0 Bladder-neck obstruction; R33.8 Other retention of urine; Z79.899 Other long term (current) drug therapy
CPT/HCPCS: 36415; 51702; 71045; 74176; 80048; 80053; 81001; 81015; 82570; 82728; 82962; 83690; 84154; 84300; 84484; 84550; 85014; 85018; 85025; 85610; 86850; 86900; 86901; 86920; 87081; 87086; 87088; 87186; 93005; 94640; 96365; 96375; 96376; G0378; J0696; J1815; J2250; J2405; J2704

== ENCOUNTER 2021-12-09 18:06 | Emergency (ER) | payer MEDICARE ==
[~2021-12-09] VITALS: Ht 177.8 cm; Wt 81.0 kg
[~2021-12-09 18:06] MED LIST changes: -ASPI-247; +ASPI81CH59 PO; +BACDST PO; -DULO1CAP6 PO; +DUTACAP PO; +FURO40TA4 PO; -GABA100C9; +LOSA25TA38 PO; -LOSA50TA7; +POTA10TA51 PO; -POTA1TAB4 PO; -SIMV40TA2; -TAM04C
[2021-12-09 22:49] LABS: Basophils # (auto) 0.1 10 ^3/uL (0-0.2); Basophils % (auto) 0.9 % (0.0-2.0); Eosinophils # (auto) 0.4 10 ^3/uL (0-0.8); Hematocrit 27.5 % (41.0-53.0); Hemoglobin 9.1 g/dL (13.5-17.5); Lymphocytes # (auto) 1.2 10 ^3/uL (0.4-5.4); Mean Corpuscular Hemoglobin 30.3 pg (28.0-32.0); Mean Corpuscular Hgb Conc. 33.1 g/dL (32.0-36.0); Mean Corpuscular Volume 91.3 fL (80.0-100.0); Monocytes # (auto) 0.8 10 ^3/uL (0-1.3); Monocytes % (auto) 10.4 % (0.0-12.0); Neutrophils # (auto) 4.8 10 ^3/uL (1.6-8.6); Neutrophils % (auto) 66.7 % (37.0-80.0); Nucleated Red Blood Cells % 0.1 %; Red Blood Cells 3.01 10^6/uL (4.5-5.90); White Blood Cell 7.2 10^3/uL (4.4-10.8)
[2021-12-09 23:06] LABS: Albumin 2.9 g/dL (3.4-5.0); Calcium 8.9 mg/dL (8.5-10.1); Potassium 4.9 mmol/L (3.5-5.1)
[2021-12-09 23:09] LABS: Urine Bacteria NONE SEEN /hpf (None Seen); Urine Blood 3+ /uL (Negative); Urine WBC 235 /hpf (0 - 3); Urine WBC Clumps PRESENT /hpf (None Seen)
[2021-12-09 23:11] LABS: Bilirubin, Total 0.5 mg/dL (0.2-1.0); Total Protein 7.2 g/dL (6.4-8.2)
[2021-12-10] MEDS ORDERED: cefTRIAXone 1GM/50ML D5W 50 ML IV ONE
[2021-12-10] MEDS ORDERED: CIPR-173 PO (00:01)
[2021-12-10 01:33] VITALS: BP 153/99
== END 2021-12-10 05:54 | disposition home or self-care (01) ==
LOC: EDBD 18:06 → ER 18:06
DX: N39.0 Urinary tract infection, site not specified (principal); R33.9 Retention of urine, unspecified; E11.22 Type 2 diabetes mellitus with diabetic chronic kidney disease; I12.9 Hypertensive chronic kidney disease with stage 1 through stage 4 chronic kidney disease, or unspecified chronic kidney disease; N18.9 Chronic kidney disease, unspecified; E78.5 Hyperlipidemia, unspecified; Z88.6 Allergy status to analgesic agent
CPT/HCPCS: 36415; 74176; 80053; 81001; 85025; 96365; 99284; J0696

== ENCOUNTER 2023-01-04 18:47 | Inpatient (IN) | payer MEDICARE ==
[~2023-01-04] VITALS: Ht 177.8 cm; Wt 74.0 kg
[~2023-01-04 18:47] MED LIST changes: +CIPR-173 PO; +LOSA25TA15 PO; -LOSA25TA38 PO; -OMEP-260 PO; +OMEP1CAP70 PO
[2023-01-04] MEDS ORDERED: IPRATROPIUM BROM 0.5 MG/2.5ML INH SOL NEB ONE (19:00)
[2023-01-04] MEDS ORDERED: ALBUTEROL SULF 2.5 MG/0.5ML(0.5%) NEB SOLN NEB ONE ×2 (19:00→21:00)
[2023-01-04] MEDS ORDERED: SODIUM CHLORIDE 0.9% 1,000 ML IV ONE (19:00)
[2023-01-04] MEDS ORDERED: ALBUTEROL MEDNEB 2.5 mg/3ml NEB ONE (19:11)
[2023-01-04] MEDS ORDERED: VANCOMYCIN 1GM/250ML 250 ML IV ONE (19:15)
[2023-01-04 19:20] LABS: Base Excess -12.3 mmol/L (-2.0-2.0)
[2023-01-04 19:30] VITALS: PULSE 131; RESP 30; O2SAT 100
[2023-01-04 19:53] LABS: Hematocrit 41.9 % (41.0-53.0); Hemoglobin 13.3 g/dL (13.5-17.5); Mean Corpuscular Hemoglobin 28.8 pg (28.0-32.0); Mean Corpuscular Hgb Conc. 31.9 g/dL (32.0-36.0); Mean Corpuscular Volume 90.4 fL (80.0-100.0); Red Blood Cells 4.63 10^6/uL (4.5-5.90); White Blood Cell 23.7 10^3/uL (4.4-10.8)
[2023-01-04 20:03] LABS: Alanine Aminotransferase 33 U/L (7-40); Albumin 3.9 g/dL (3.2-4.8); Alkaline Phosphatase 122 U/L (46-116); Anion Gap 13 (5-15); Aspartate Aminotransferase 62 U/L (13-40); BUN/Creatinine Ratio 13.8 (10.0-20.0); Bilirubin, Total 0.8 mg/dL (0.2-1.0); Blood Urea Nitrogen 35 mg/dL (9-23); Calcium 9.4 mg/dL (8.7-10.4); Carbon Dioxide 18 mmol/L (20-30); Chloride 107 mmol/L (98-107); Glucose 144 mg/dL (74-106); Sodium 138 mmol/L (136-145); Total Protein 7.3 g/dL (5.7-8.2)
[2023-01-04 20:26] LABS: Basophils % (manual) 0 (0.0-2.0); Blast Cells 0; Eosinophils % (manual) 0 (0-7); Metamyelocytes % 0; Promyelocytes % 0; Reactive Lymphocytes 0
[2023-01-04 20:30] LABS: Lactic Acid w/Reflex 5.5 mmol/L (0.4-2.0)
[2023-01-04 20:31] LABS: Potassium 5.6 mmol/L (3.5-5.1)
[2023-01-04 21:05] LABS: Band Neutrophils % (manual) 44; Lymphocytes % (manual) 5 (10.0-50.0); Monocytes % (manual) 5 (0-12); Myelocytes % 1; Platelet Estimate Adequate
[2023-01-04 22:28] VITALS: BP 117/82; PULSE 126; RESP 31; O2SAT 100
[2023-01-04] MEDS ORDERED: AZITHROMYCIN 500MG/ 250ML 250 ML IV ONE (22:30)
[2023-01-04] MEDS ORDERED: cefTRIAXone 1GM/50ML D5W 50 ML IV ONE (22:30)
[2023-01-04] MEDS ORDERED: ALBUTEROL MEDNEB 2.5 mg/3ml NEB NEB PRN (23:45)
[2023-01-04] MEDS ORDERED: IPRATROPIUM BROM 0.5 MG/2.5ML INH SOL NEB PRN (23:45)
[2023-01-04] MEDS ORDERED: MORPHINE SULFATE INJ 2 MG/ml SYRG IV PRN (23:45)
[2023-01-04] MEDS ORDERED: DEXTROSE (50%) 50ML SYRG IV PRN (23:45)
[2023-01-04] MEDS ORDERED: ONDANSETRON HCL 4 MG/2 ML VIAL IV PRN (23:45)
[2023-01-04] MEDS ORDERED: NITROGLYCERIN 0.4 MG SL TAB SL PRN (23:45)
[2023-01-04] MEDS ORDERED: SODIUM ZIRCONIUM CYCL 10 GM PAK PO ONE (23:45)
[2023-01-05] VITALS (11 sets, daily range): BP systolic 83–180; BP diastolic 43–94; PULSE 93–131; RESP 17–26; TEMP 98.2; O2SAT 91–100
[2023-01-05] MEDS ORDERED: LORazepam 2MG/ML-1ML VIAL IV ONE (01:15)
[2023-01-05] MEDS ORDERED: ACETAMINOPHEN 325 MG TAB PO PRN (02:00)
[2023-01-05 02:12] LABS: Base Excess -12.3 mmol/L (-2.0-2.0)
[2023-01-05] MEDS ORDERED: ETOMIDATE (2MG/ML) 20ML VIAL IV ONE ×2 (02:26→03:30)
[2023-01-05] MEDS ORDERED: SUCCINYLCHOLINE CHLORIDE 20 MG/ML 10ML VIAL IV ONE ×2 (02:27→03:30)
[2023-01-05] MEDS ORDERED: MIDAZOLAM DRIP 50 mg/50mL 50 ML IV ONE (02:55)
[2023-01-05] MEDS: MIDAZOLAM DRIP 50 mg/50mL 50 ML IV SCH ×3 (03:49→13:47)
[2023-01-05 03:56] LABS: Base Excess -12.1 mmol/L (-2.0-2.0)
[2023-01-05] MEDS: NOREPINEPHRINE 8 MG/250ML KIT 250 ML IV SCH ×3 (04:13→11:24)
[2023-01-05] MEDS: SODIUM BICARBONATE 8.4 % INJ 50ML VIAL IV ONE ×2 (05:17→06:15)
[2023-01-05 06:04] LABS: Urine Bacteria MANY /hpf (None Seen); Urine Blood 2+ /uL (Negative); Urine Clarity HAZY (Clear); Urine Color Yellow (Yellow); Urine Hyaline Cast FEW /lpf (0 - 2); Urine Protein, UAD 3+ (Negative); Urine Specific Gravity 1.027 (1.001-1.035); Urine Urobilinogen Normal (Negative); Urine WBC 3 /hpf (0 - 3)
[2023-01-05] MEDS ORDERED: SODIUM BICARBONATE 8.4 % INJ 50ML VIAL IV ONE ×2 (06:21→14:30)
[2023-01-05] MEDS: SODIUM BICARBONATE 50ML VIAL 100 ML in SOD CHL 0.45% 1,000 ML IV SCH ×2 (06:32→09:07)
[2023-01-05 07:03] LABS: Hematocrit 41.4 % (41.0-53.0); Hemoglobin 13.1 g/dL (13.5-17.5); Mean Corpuscular Hemoglobin 28.5 pg (28.0-32.0); Mean Corpuscular Hgb Conc. 31.8 g/dL (32.0-36.0); Mean Corpuscular Volume 89.8 fL (80.0-100.0); Red Blood Cells 4.61 10^6/uL (4.5-5.90)
[2023-01-05 07:20] LABS: Alanine Aminotransferase 55 U/L (7-40); Albumin 3.6 g/dL (3.2-4.8); Alkaline Phosphatase 101 U/L (46-116); Anion Gap 10 (5-15); Aspartate Aminotransferase 109 U/L (13-40); BUN/Creatinine Ratio 11.4 (10.0-20.0); Blood Urea Nitrogen 38 mg/dL (9-23); Carbon Dioxide 18 mmol/L (20-30); Chloride 107 mmol/L (98-107); Glucose 113 mg/dL (74-106); Potassium 4.9 mmol/L (3.5-5.1); Sodium 135 mmol/L (136-145)
[2023-01-05 07:21] LABS: Bilirubin, Total 0.5 mg/dL (0.2-1.0); Total Protein 6.8 g/dL (5.7-8.2)
[2023-01-05 07:41] LABS: Basophils % (manual) 0 (0.0-2.0); Blast Cells 0; Eosinophils % (manual) 0 (0-7); Promyelocytes % 0; Reactive Lymphocytes 0; White Blood Cell 33.7 10^3/uL (4.4-10.8)
[2023-01-05] MEDS: InsuLIN REG 1unit/0.01ml Soln (100units/ml) SC SCH ×3 (07:56→16:57)
[2023-01-05] MEDS: ACCU-CHEK COMFORT CURVE STRIP VI SCH ×3 (07:57→17:01)
[2023-01-05] MEDS ORDERED: fentaNYL Drip 2500mCg/250mlNS 250 ML IV SCH (08:00)
[2023-01-05 08:23] LABS: Base Excess -10.1 mmol/L (-2.0-2.0)
[2023-01-05] MEDS ORDERED: VANCOMYCIN PER PHARMACY 0 MG IV SCH (08:30)
[2023-01-05] MEDS ORDERED: ACETAMINOPHEN 650 mg PER 20.3 mL UD PO PRN (08:30)
[2023-01-05 08:34] LABS: INR 1.24 (0.9-1.15); Partial Thromboplastin Time 36.7 SEC (24.5-34.5); Prothrombin Time 12.8 sec (9.3-11.8)
[2023-01-05] MEDS ORDERED: ACETAMINOPHEN 650 mg PER 20.3 mL UD ONE (08:37)
[2023-01-05] MEDS ORDERED: cefTRIAXone 1GM/50ML D5W 50 ML IV SCH (09:00)
[2023-01-05] MEDS ORDERED: HYDROCORTISONE SOD SUCC 100 MG/2ML INJ VIAL IV SCH (10:00)
[2023-01-05] MEDS ORDERED: LINEZOLID 600MG/300ML 300 ML IV SCH (10:00)
[2023-01-05] MEDS ORDERED: AZITHROMYCIN 500MG/ 250ML 250 ML IV SCH (10:00)
[2023-01-05 10:58] LABS: Creatinine, Urine 104.03 mg/dL (30.0-125.0)
[2023-01-05] MEDS ORDERED: VASOPRESSIN 20 UNITS in SODIUM CHL 0.9% 99 ML IV SCH (11:00)
[2023-01-05 11:02] LABS: Protein, Urine 1479.9 mg/dL (0.0-11.9)
[2023-01-05 11:06] LABS: Urine Bacteria MANY /hpf (None Seen); Urine Blood 3+ /uL (Negative); Urine Clarity HAZY (Clear); Urine Color PINK (Yellow); Urine Protein, UAD 3+ (Negative); Urine Specific Gravity 1.025 (1.001-1.035); Urine Urobilinogen Normal (Negative); Urine WBC 15 /hpf (0 - 3)
[2023-01-05 11:13] LABS: Base Excess -12.9 mmol/L (-2.0-2.0)
[2023-01-05 12:22] LABS: Band Neutrophils % (manual) 8; Lymphocytes % (manual) 3 (10.0-50.0); Metamyelocytes % 18; Monocytes % (manual) 9 (0-12); Myelocytes % 1; Platelet Estimate Adequate
[2023-01-05] MEDS ORDERED: LIDOCAINE 1% (LOCAL ANESTH.) PF 5ml SDV ID ONE (13:15)
[2023-01-05] MEDS ORDERED: ALBUTEROL MEDNEB 2.5 mg/3ml NEB NEB SCH (14:00)
[2023-01-05] MEDS ORDERED: IPRATROPIUM BROM 0.5 MG/2.5ML INH SOL NEB SCH (14:00)
[2023-01-05] MEDS ORDERED: PIPERACILLIN-TAZOB 3.375GM 100 ML IV SCH (14:00)
[2023-01-05] MEDS ORDERED: ACETYLCYSTEINE 10 %(100MG/ML) SOL 4ML NEB SCH (14:00)
[2023-01-05 14:22] LABS: Base Excess -12.6 mmol/L (-2.0-2.0)
[2023-01-05] MEDS ORDERED: CHOL20007 PO (14:49)
[2023-01-05] MEDS ORDERED: NOREPINEPHRINE BITARTRATE 16 MG in SODIUM CHL 0.9% 234 ML IV SCH (15:30)
[2023-01-05 15:56] LABS: Base Excess -9.8 mmol/L (-2.0-2.0)
[2023-01-05] MEDS ORDERED: SODIUM BICARBONATE 50ML VIAL 100 ML in D5W 5% 1,000 ML IV SCH (16:15)
[2023-01-05] MEDS ORDERED: ENOXAPARIN SOD 30 MG/0.3 ML SYRINGE SC SCH (17:00)
[2023-01-05] MEDS ORDERED: ENOXAPARIN SOD 100 MG/1 ML SYRINGE SC SCH (17:15)
[2023-01-05] MEDS ORDERED: DOPamine 1600MCG/ML D5W 250 ML IV SCH (17:30)
[2023-01-05] MEDS ORDERED: EPINEPHrine HCL 1 MG/10 ML SYRG IV ONE ×2 (18:46)
[2023-01-05] MEDS ORDERED: ATROPINE SULF 1 MG/10ml SYR IM ONE (18:46)
[2023-01-05] MEDS ORDERED: SODIUM BICARBONATE 8.4% INJ 50ML SYRINGE IV ONE (18:46)
[2023-01-05] MEDS ORDERED: SODIUM CHLOR 0.9% PF (SALINE LOCK) 10ML VIAL/SYR IV SCH (22:00)
== END 2023-01-05 18:47 | DRG 871 ==
LOC: EDBD 18:47 → ER 18:47 → TELE 23:41
PROVIDERS: ADMIT Nurse Practitioner; ATTEND Nurse Practitioner
PROC: 5A09357 Assistance with Respiratory Ventilation, Less than 24 Consecutive Hours, Continuous Positive Airway Pressure (ICD-10-PCS; 2023-01-04)
PROC: 0BH17EZ Insertion of Endotracheal Airway into Trachea, Via Natural or Artificial Opening (ICD-10-PCS; 2023-01-04)
PROC: 5A12012 Performance of Cardiac Output, Single, Manual (ICD-10-PCS; principal; 2023-01-05)
PROC: 5A1223Z Performance of Cardiac Pacing, Continuous (ICD-10-PCS; 2023-01-05)
PROC: 5A1935Z Respiratory Ventilation, Less than 24 Consecutive Hours (ICD-10-PCS; 2023-01-05)
PROC: 02HV33Z Insertion of Infusion Device into Superior Vena Cava, Percutaneous Approach (ICD-10-PCS; 2023-01-05)
PROC: B548ZZA Ultrasonography of Superior Vena Cava, Guidance (ICD-10-PCS; 2023-01-05)
DX: A41.9 Sepsis, unspecified organism (principal); J15.69 Pneumonia due to other Gram-negative bacteria; J96.01 Acute respiratory failure with hypoxia; N17.0 Acute kidney failure with tubular necrosis; R65.21 Severe sepsis with septic shock; J15.9 Unspecified bacterial pneumonia; J44.0 Chronic obstructive pulmonary disease with (acute) lower respiratory infection; R00.1 Bradycardia, unspecified; I46.9 Cardiac arrest, cause unspecified; E11.22 Type 2 diabetes mellitus with diabetic chronic kidney disease; E78.5 Hyperlipidemia, unspecified; I12.9 Hypertensive chronic kidney disease with stage 1 through stage 4 chronic kidney disease, or unspecified chronic kidney disease; N18.9 Chronic kidney disease, unspecified; N30.90 Cystitis, unspecified without hematuria; Z87.891 Personal history of nicotine dependence; Z88.6 Allergy status to analgesic agent; J44.9 Chronic obstructive pulmonary disease, unspecified
CPT/HCPCS: 36415; 36569; 36600; 71045; 76775; 80053; 81001; 82570; 82805; 82962; 83605; 83880; 84156; 84300; 84484; 85007; 85027; 85379; 85610; 85730; 87040; 87070; 87077; 87186; 87205; 92950; 93005; 93306; 94002; 94003; 94640; 94660; 96361; 96365; G0378; J0330; J0696; J1815; J2250; J2543